=== PATIENT | male | born 1985 | race Caucasian/White ===

== ENCOUNTER 2016-12-30 11:37 | Emergency (ER) | payer MEDICAID, OTHER ==
[~2016-12-30] VITALS: Wt 93.2 kg
[2016-12-30] MEDS ORDERED: IBUPROFEN 800 MG TAB PO ONE (12:30)
--- NOTE | 2016-12-30 13:27 | RADRPT ---
PROCEDURE: XR Left rib series. CLINICAL INDICATION: Pain following injury. TECHNIQUE: 3 views of the left rib cage and an AP view of the chest are available for review COMPARISON: None available FINDINGS: No acute fracture or dislocation is seen. No radiopaque foreign body is identified. No focal airspa ce opacity, pleural effusion or pneumothorax is seen. There is a 6 mm granuloma within the left low er lobe. The cardiothymic silhouette is within normal limits for size. IMPRESSION: 1. No acute fracture identified. 2. 6 mm left lower lobe granuloma. RPTAT: HH .Sherin Dalal MD, MD Date Time Electronically viewed and signed by .Sherin Dalal MD, MD on 12/30/2016 13:27 .G/
[2016-12-30] MEDS ORDERED: IBUP800T25 PO (13:36)
[2016-12-30 13:48] VITALS: BP 158/70; RESP 18
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
== END 2016-12-30 13:49 | disposition home or self-care (01) ==
LOC: FTE 11:37
DX: S20.212A Contusion of left front wall of thorax, initial encounter (principal); F17.210 Nicotine dependence, cigarettes, uncomplicated; Y04.0XXA Assault by unarmed brawl or fight, initial encounter
CPT/HCPCS: 71100; Z7502; Z7610